=== PATIENT | female | born 1970 | race Caucasian/White ===

== ENCOUNTER 2016-05-30 08:33 | Day surgery (SDC) | payer OTHER ==
[2016-05-27 14:54] VITALS: BMI 33.0
[~2016-05-30 08:33] MED LIST: LACTATED RINGERS 1,000 ML IV SCH; LIDOCAINE 1% 20 ML VIAL (10MG/ML) FOR IV START INTRADERMA PRN
[2016-05-30 09:20] VITALS: RESP 16; TEMP 98.2
[2016-05-30] MEDS ORDERED: PROPOFOL 10 MG/ML 20 ML VIAL IV ONE (10:17)
--- NOTE | 2016-05-30 10:43 | P.PCN ---
Date of Procedure: 05/30/16 Procedure(s) Performed: Brief history: Patient is a pleasant 45-year-old white female, scheduled for an elective upper endoscopy as well as colonoscopy as a part of evaluation of abdominal pain, postprandial abdominal bloating and alternating diarrhea and constipation of several months duration. Procedure performed: Esophagogastroduodenoscopy with biopsy Colonoscopy with biopsy and snare polypectomy Preoperative diagnosis: GERD/abdominal pain Postoperative abdominal bloating and change in bowel habits Anesthesia: MAC Procedure: After informed consent was obtained from the patient was brought into the endoscopy unit and IV conscious sedation was administered by anesthesia under continuous monitoring. Initially upper endoscopy was done. The Olympus GF 160 video endoscope was inserted inserted into the mouth and esophagus intubated without any difficulty and was gradually advanced into the stomach and duodenum and carefully examined. The bulb and second part of the duodenum appeared normal. Biopsies were done from this area to rule out celiac disease. The scope was then withdrawn into the stomach adequately insufflated with air and upon careful examination the antrum had mild gastritis and biopsies were done from this area. The body, cardia and fundus appeared normal. The scope was then withdrawn into the esophagus. The GE junction was located at 40 cm to the incisors. It appeared regular with no erythema erosions or ulcerations. Rest of the esophagus appeared normal. Patient tolerated the procedure well. At this time the patient continued to remain sedation. Initial digital rectal examination was normal. Olympus CF 160 video colonoscope was then inserted into the rectum and gradually advanced to the cecum without any difficulty. Careful examination was performed as the scope was gradually being withdrawn. The prep was excellent. The cecum, ascending colon, transverse colon, descending colon appeared normal. Random biopsies were done from the ascending and descending colon to rule out microscopic/collagenous colitis. In the sigmoid colon there was a 5 mL polyp that was removed by biopsy and then there was a 1 segment of distal sigmoid polyp removed by snare polypectomy. Scattered sigmoidal diverticulosis seen. Rest of the , sigmoid colon and rectum appeared normal. Retroflexion was performed in the rectum and no lesions were noted. Patient tolerated the procedure well. Impression: 1. Upper endoscopy. revealed mild antral gastritis but no evidence of peptic ulcer disease or esophagitis 2. Colonoscopy revealed 5 mm and 1 cm sigmoid colon polyp status post biopsy and snare polypectomy respectively and scattered sigmoidal diverticulosis. Recommendations: Findings of this examination were discussed with the patient as well as her family. She was advised to follow with the biopsy results. She will be seen in office in 2-3 weeks.
[2016-05-30 11:13] VITALS: BP 107/68; PULSE 64
== END 2016-05-30 11:41 | disposition home or self-care (01) ==
LOC: ORWHC2ENDO 08:33
PROVIDERS: ATTEND Internal Medicine Gastroenterology
DX: K29.50 Unspecified chronic gastritis without bleeding (principal); D12.5 Benign neoplasm of sigmoid colon; K63.5 Polyp of colon; K57.30 Diverticulosis of large intestine without perforation or abscess without bleeding; K64.9 Unspecified hemorrhoids; K21.9 Gastro-esophageal reflux disease without esophagitis; F39 Unspecified mood [affective] disorder; I34.1 Nonrheumatic mitral (valve) prolapse; Z79.899 Other long term (current) drug therapy
CPT/HCPCS: 81025; 88305; 88342; 45380; 45385; 43239; J2704

== ENCOUNTER 2017-01-08 06:01 | Observation (INO) | payer OTHER ==
[2017-01-06 10:24] VITALS: BMI 31.1
--- NOTE | 2017-01-07 13:36 | P.HPOB ---
History of Present Illness H&P Date: 01/07/17 Chief Complaint: dysmenorrhea 46 year old presents for TLH with Bilateral salpingectomy with da kishor for dysmenorrhea. Review of Systems All systems: negative Constitutional: Denies chills, Denies fever Eyes: denies blurred vision, denies pain Ears, nose, mouth and throat: Denies headache, Denies sore throat Cardiovascular: Denies chest pain, Denies shortness of breath Respiratory: Denies cough Gastrointestinal: Denies abdominal pain, Denies diarrhea, Denies nausea, Denies vomiting Genitourinary: Denies dysuria, Denies hematuria Musculoskeletal: Denies myalgias Integumentary: Denies pruritus, Denies rash Neurological: Denies numbness, Denies weakness Psychiatric: Denies anxiety, Denies depression Endocrine: Denies fatigue, Denies weight change Past Medical History Past Medical History: GERD/Reflux, Hyperlipidemia, Mitral Valve Prolapse (MVP) Additional Past Medical History / Comment(s): past hx. vertigo. OB history: 2 vaginal deliveries History of Any Multi-Drug Resistant Organisms: None Reported Past Surgical History: Cholecystectomy, Hernia Repair, Uterine Ablation ( pathology at the time did show simple hyperplasia without atypia) Past Anesthesia/Blood Transfusion Reactions: Family History of Problems w/ Anesthesia Additional Past Anesthesia/Blood Transfusion Reaction / Comment(s): pt's mother has hard time coming out of anesthesia Smoking Status: Current every day smoker - Past Family History Mother Family Medical History: No Reported History Medications and Allergies Home Medications Medication Instructions Recorded Confirmed Type LORazepam [Ativan] 0.5 mg PO BID 04/16/15 01/06/17 History diphenhydrAMINE HCL [Benadryl] 25 mg PO HS 04/16/15 01/06/17 History Melatonin 10 mg PO HS 05/27/16 01/06/17 History Omeprazole [PriLOSEC] 40 mg PO DAILY 05/27/16 01/06/17 History Dicyclomine [Bentyl] 10 mg PO BID 05/30/16 01/06/17 History Atorvastatin [Lipitor] 20 mg PO HS 01/06/17 01/06/17 History Citalopram Hydrobromide [CeleXA] 20 mg PO DAILY 01/06/17 01/06/17 History Phentermine HCl [Adipex-P] 37.5 mg PO QAM 01/06/17 01/06/17 History Allergies Allergy/AdvReac Type Severity Reaction Status Date / Time erythromycin base Allergy Rash/Hives Verified 01/06/17 09:15 Exam Osteopathic Statement: *. No significant issues noted on an osteopathic structural exam other than those noted in the History and Physical/Consult. HEart: RRR Lungs: CTAB Abdomen: soft, nontender Extremeties: neg israel's Assessment and Plan (1) Dysmenorrhea Status: Acute Code(s): N94.6 - DYSMENORRHEA, UNSPECIFIED SNOMED Code(s): 307822406 Plan: 1. total laparoscopic hysterectomy with bilateral salpingectomy with da kishor, possible bilateral oopherectomy, possible laparotomy.
[~2017-01-08 06:01] MED LIST changes: -LACTATED RINGERS 1,000 ML IV SCH; -LIDOCAINE 1% 20 ML VIAL (10MG/ML) FOR IV START INTRADERMA PRN; +ceFAZolin 2 GM in SODIUM CHLORIDE 0.9% 100 ML IVPB ONE
[2017-01-08] MEDS ORDERED: LIDOCAINE 1% 20 ML VIAL (10MG/ML) FOR IV START INTRADERMA ONE ×2 (06:25→06:27)
[2017-01-08] MEDS ORDERED: LACTATED RINGERS 1,000 ML IV ONE ×2 (06:26)
[2017-01-08] MEDS ORDERED: DEXAMETHASONE SOD PHOS (MDV) 100 MG/10 ML VIAL IVP ONE (06:27)
[2017-01-08] MEDS ORDERED: ONDANSETRON 4 MG/2 ML VIAL IVP ONE (06:28)
[2017-01-08] MEDS ORDERED: SCOPOLAMINE 1.5MG/72HR PATCH TRANSDERM ONE (06:28)
[2017-01-08] MEDS ORDERED: MORPHINE SULFATE 2 MG/ML SYRINGE IV PRN (06:46)
[2017-01-08] MEDS ORDERED: MIDAZOLAM 2 MG/2 ML VIAL IV PRN (06:46)
[2017-01-08] MEDS ORDERED: ONDANSETRON 4 MG/2 ML VIAL IVP PRN ×2 (06:46→10:03)
[2017-01-08] MEDS ORDERED: LACTATED RINGERS 1,000 ML IV SCH (07:00)
[2017-01-08] MEDS ORDERED: fentaNYL (PF) 50 MCG/ML 2 ML AMP ONE (07:12)
[2017-01-08] MEDS ORDERED: MIDAZOLAM 2 MG/2 ML VIAL ONE (07:12)
[2017-01-08] MEDS ORDERED: SUCCINYLCHOLINE CHLORIDE 100 MG/5 ML SYR IV ONE (07:12)
[2017-01-08] MEDS ORDERED: HYDROmorphone (PF) 1 MG/ML ONE (07:12)
[2017-01-08] MEDS ORDERED: LIDOCAINE 1% INJ 10MG/ML (20 ML MDV) ONE (07:12)
[2017-01-08] MEDS ORDERED: GLYCOPYRROLATE 0.2 MG/ML 2 ML VIAL ONE (07:12)
[2017-01-08] MEDS ORDERED: VECURONIUM 10 MG VIAL IV ONE (07:12)
[2017-01-08] MEDS ORDERED: PROPOFOL 10 MG/ML 20 ML VIAL IV ONE (07:12)
[2017-01-08] MEDS ORDERED: NEOSTIGMINE 1 MG/ML 10 ML VIAL ONE (07:12)
[2017-01-08] MEDS ORDERED: BUPIVACAINE (PF) 0.25% 30 ML VIAL SQ ONE (07:50)
--- NOTE | 2017-01-08 08:39 | P.OP ---
Date of Procedure: 01/08/17 Preoperative Diagnosis: 1. dysmenorrhea Postoperative Diagnosis: 1.dysmenorrhea Procedure(s) Performed: TLH and BS with da ana Anesthesia: JAJA Surgeon: Cely Estrada Certified Physician'S Assistant #1: Kip Jacobs Estimated Blood Loss (ml): 100 IV fluids (ml): 850 Urine output (ml): 100 Pathology: other (uterus, cervix, bilateral fallopian tubes) Condition: stable Disposition: PACU Operative Findings: normal uterus, tubes and ovaries, there was a polypoid structure near the left ureteral orifice on cysto Description of Procedure: Patient taken the operating room where general anesthesia was obtained without difficulty. She is prepped and draped in normal sterile fashion dorsal lithotomy position, legs placed in the Napoleon stirrups. Weighted speculum placed in the vagina and the anterior lip the cervix was grasped with single- tooth tenaculum. The uterus sounded to 8 cm and the cervix diameter was 3.5 cm. The appropriate manipulator tip and ring were placed on the Kajal manipulator. The Kajal manipulator was then placed in the uterus. Couch catheter was also placed. Attention was then turned to the abdomen and gloves were changed. A 5 mm supraumbilical incision was made the scalpel and a 5 mm optical trocar was placed under direct visualization. 10 cm to the right of this and 2 cm down a 5 mm incision was made and 8 mm da Ana port was placed under direct visualization. Same measurements on the opposite side of the patient's abdomen, the 5 mm incision was made and 8 mm da Ana port was placed under direct visualization. In the left upper quadrant a 10 mm incision was made and a 10 mm optical trocar was placed under direct visualization. The 5 mm optical trocar was then replaced with the 8 mm da Ana camera port. The robot was docked on patient's right side. The camera was introduced and then the monopolar curved scissor and [place] bipolar placed under direct visualization. I broke scrub and went to the physician console. The left mesosalpinx was cauterized with the [place] bipolar and cut with monopolar curved scissors a separate the left fallopian tube. The left uterosacral ligament was cauterized with the [place] bipolar and cut with the monopolar curved scissors. The left round ligament was cauterized with the [place] bipolar and cut with monopolar curved scissors. The posterior leaf of the broad ligament was taken down using the monopolar curved scissors. Anterior leaf of the broad ligament was then taken down using the monopolar curved scissors. The uterine artery was cauterized with the [place] bipolar and cut with monopolar curved scissors. The bladder flap was then started using the monopolar curved scissors. Attention was then turned to the right side of the patient's anatomy and The right mesosalpinx was cauterized with the [place] bipolar and cut with monopolar curved scissors a separate the right fallopian tube. The right uterosacral ligament was cauterized with the [place] bipolar and cut with the monopolar curved scissors. The right round ligament was cauterized with the [place] bipolar and cut with monopolar curved scissors. Posterior leaf of the broad ligament was taken down using the monopolar curved scissors and the anterior leaf was taken down using the monopolar curved scissors. The uterine artery was cauterized the [place] bipolar cut with monopolar curved scissors. The bladder flap was then finished on this side. Anterior colpotomy was made using the monopolar curved scissors. The rest of the uterus was from the vaginal cuff by following the ring around with the monopolar curved scissors through the uterosacral ligaments back to the anterior portion. Once the uterus and cervix were amputated they were pulled through the vaginal cuff. Hemostasis was assured. The instruments were changed for the Cardier forcep and the susie suture cut. The vaginal cuff was then closed using O stratafix barbed suture in a running fashion. Hemostasis was again assured and the pelvis was irrigated. All instruments were removed from the abdomen and the robot was undocked. I scrubbed back in to perform a cystoscopy. There were jets from both ureteral orifices. a polypoid structure was also seen on the bladder wall, near the left ureteral orifice. The abdominal incisions were closed with 4-0 Vicryl in a subcuticular fashion. Patient tolerated the procedure well, sponge and instrument counts correct 2 and she was taken to recovery room in stable condition condition
[2017-01-08] MEDS ORDERED: ZOLPIDEM 5 MG TAB PO PRN (10:03)
[2017-01-08] MEDS ORDERED: diphenhydrAMINE 50 MG/ML 1 ML VIAL IVP PRN (10:03)
[2017-01-08] MEDS ORDERED: SIMETHICONE 80 MG CHEWABLE PO PRN (10:03)
[2017-01-08] MEDS ORDERED: METOCLOPRAMIDE 5 MG/ML 2 ML VIAL IVP PRN (10:03)
[2017-01-08] MEDS ORDERED: IBUPROFEN 600 MG TAB PO PRN (10:03)
[2017-01-08] MEDS ORDERED: Acetaminophen-Codeine 300-30mg TAB PO PRN ×2 (10:03)
[2017-01-08] MEDS: KETOROLAC 30 MG/ML 1 ML VIAL IVP PRN ×2 (10:20→16:30)
[2017-01-08] MEDS: CITALOPRAM HYDROBROMIDE 20 MG TAB PO SCH (11:00)
[2017-01-08] MEDS: DICYCLOMINE 10 MG CAP PO SCH ×2 (11:00→20:46)
[2017-01-08] MEDS: DOXYCYCLINE 50 MG CAP PO SCH (11:00)
[2017-01-08] MEDS: LORazepam 0.5 MG TAB PO SCH ×2 (11:01→20:47)
[2017-01-08] MEDS: PANTOPRAZOLE 40 MG TABLET PO SCH (11:01)
[2017-01-08] MEDS ORDERED: ATORVASTATIN 20 MG TAB PO SCH (21:00)
[2017-01-08] MEDS ORDERED: diphenhydrAMINE 25 MG CAP PO SCH (21:00)
[2017-01-09] MEDS: KETOROLAC 30 MG/ML 1 ML VIAL IVP PRN ×2 (02:11→08:34)
[2017-01-09 07:03] LABS: Basophils % (A) 0 %; CH 29.7; CHCM 32.1; Eosinophils # (A) 0.1 k/uL (0-0.7); Eosinophils % (A) 1 %; HCT 35.3 % (34.0-46.0); HDW 2.36; HGB 11.4 gm/dL (11.4-16.0); Luc # (Auto) 0.14; Luc % (Auto) 1; Lymphocytes # (A) 1.8 k/uL (1.0-4.8); Lymphocytes % (A) 14 %; MCH 29.9 pg (25.0-35.0); MCHC 32.2 g/dL (31.0-37.0); MCV 92.9 fL (80.0-100.0); Monocytes # (A) 0.6 k/uL (0-1.0); Monocytes % (A) 5 %; Neutrophils # (A) 10.3 k/uL (1.3-7.7); Neutrophils % (A) 80 %; RDW 13.2 % (11.5-15.5)
--- NOTE | 2017-01-09 08:42 | P.DS ---
Providers Date of admission: 01/08/17 10:29 Expected date of discharge: 01/09/17 Attending physician: Cely Estrada Primary care physician: Anatoly Ontiveros - Discharge Diagnosis(es) (1) Dysmenorrhea Current Visit: Yes Status: Resolved (2) History of robot-assisted laparoscopic hysterectomy Current Visit: Yes Status: Acute (3) Bladder tumor found incidentally on diagnostic cystoscopy Current Visit: Yes Status: Acute Hospital Course: Ghada presented for total laparoscopic hysterectomy with bilateral salpingectomy for dysmenorrhea after history of a NovaSure ablation. She underwent this procedure without complication. During the procedure was performed with a diagnostic cystoscopy I did note a bladder tumor and reviewed the pictures with her urologist. Dr. Rodriguez side there is was likely a low- grade bladder cancer and would like to see her outpatient in his office in 1 week. I did convey this to the patient and she expressed complete understanding. Her postoperative course was uncomplicated. Her pain is well- controlled with Toradol. She is tolerating regular diet, ambulating, voiding, and passing flatus without difficulty. She denies nausea, vomiting, chest pain , shortness of breath or calf pain. Her incisions are clean, dry, intact. She' ll be discharged home postoperative day #1 in stable condition to follow-up with me in 3 weeks and follow-up with Dr. Rodriguez in 1 week. Plan - Discharge Summary Discharge Rx Participant: Yes New Discharge Prescriptions: New Acetaminophen-Codeine 300-30mg [Tylenol w/codeine #3] 2 each PO Q6HR PRN #20 tab PRN Reason: Severe Pain Ibuprofen [Motrin] 600 mg PO Q6HR PRN #30 tab PRN Reason: Mild Discomfort No Action diphenhydrAMINE HCL [Benadryl] 25 mg PO HS LORazepam [Ativan] 0.5 mg PO BID Omeprazole [PriLOSEC] 40 mg PO DAILY Melatonin 10 mg PO HS Dicyclomine [Bentyl] 10 mg PO BID Phentermine HCl [Adipex-P] 37.5 mg PO QAM Citalopram Hydrobromide [CeleXA] 20 mg PO DAILY Atorvastatin [Lipitor] 20 mg PO HS Doxycycline [Vibramycin] 100 mg PO DAILY Discharge Medication List LORazepam [Ativan] 0.5 mg PO BID 04/16/15 [History] diphenhydrAMINE HCL [Benadryl] 25 mg PO HS 04/16/15 [History] Melatonin 10 mg PO HS 05/27/16 [History] Omeprazole [PriLOSEC] 40 mg PO DAILY 05/27/16 [History] Dicyclomine [Bentyl] 10 mg PO BID 05/30/16 [History] Atorvastatin [Lipitor] 20 mg PO HS 01/06/17 [History] Citalopram Hydrobromide [CeleXA] 20 mg PO DAILY 01/06/17 [History] Phentermine HCl [Adipex-P] 37.5 mg PO QAM 01/06/17 [History] Doxycycline [Vibramycin] 100 mg PO DAILY 01/08/17 [History] Acetaminophen-Codeine 300-30mg [Tylenol w/codeine #3] 2 each PO Q6HR PRN #20 tab 01/09/17 [Rx] Ibuprofen [Motrin] 600 mg PO Q6HR PRN #30 tab 01/09/17 [Rx] Follow up Appointment(s)/Referral(s): Cely Estrada DO [Doctor of Osteopathic Medicine] - 3 Weeks Omar Rodriguez MD [STAFF PHYSICIAN] - 1 Week Patient Instructions/Handouts: Scopolamine (Absorbed through the skin), Laparoscopic Hysterectomy (GEN)
[2017-01-09] MEDS: CITALOPRAM HYDROBROMIDE 20 MG TAB PO SCH (08:44)
[2017-01-09] MEDS: DOXYCYCLINE 50 MG CAP PO SCH (08:44)
[2017-01-09] MEDS: PANTOPRAZOLE 40 MG TABLET PO SCH (08:44)
[2017-01-09] MEDS: DICYCLOMINE 10 MG CAP PO SCH (08:44)
[2017-01-09] MEDS: LORazepam 0.5 MG TAB PO SCH (08:47)
[2017-01-09 09:06] VITALS: BP 111/66; PULSE 73; RESP 20; TEMP 97.3
== END 2017-01-09 10:35 | disposition home or self-care (01) ==
LOC: OR 06:01 → 6PED 08:36 → OR 10:29 → 6PED 10:29 → INTOOBSV 10:29
PROVIDERS: ADMIT Obstetrics & Gynecology; ATTEND Obstetrics & Gynecology
DX: D25.9 Leiomyoma of uterus, unspecified (principal); N80.0 Endometriosis of uterus; N83.8 Other noninflammatory disorders of ovary, fallopian tube and broad ligament; D49.4 Neoplasm of unspecified behavior of bladder; N94.6 Dysmenorrhea, unspecified; N99.89 Other postprocedural complications and disorders of genitourinary system; K21.9 Gastro-esophageal reflux disease without esophagitis; I34.1 Nonrheumatic mitral (valve) prolapse; E78.5 Hyperlipidemia, unspecified; F17.200 Nicotine dependence, unspecified, uncomplicated; Z79.899 Other long term (current) drug therapy; Z88.1 Allergy status to other antibiotic agents
CPT/HCPCS: 58571; S2900; 81025; 85025; 86850; 86900; 86901; 88307

== ENCOUNTER → 2019-03-31 | Outpatient (CLI) | payer OTHER | END | disposition home or self-care (01) | LOC: LABWHC1 15:02 | PROVIDERS: ATTEND Orthopaedic Surgery | DX: Z01.812 Encounter for preprocedural laboratory examination (principal); M16.11 Unilateral primary osteoarthritis, right hip | CPT/HCPCS: 87070 ==

== ENCOUNTER 2019-04-04 07:30 | Inpatient (IN) | payer OTHER ==
[2019-03-29 15:31] VITALS: BMI 31.9
--- NOTE | 2019-04-03 15:40 | HP ---
HISTORY AND PHYSICAL REASON FOR ADMISSION: Surgery is 04/04/2019. Miguelito Nieto is a 48-year-old patient seen with symptomatic right hip osteoarthritis. We discussed options for treatment. She elected to proceed with right total hip arthroplasty. Consent was obtained. Medical clearance was provided by Dr. Patterson. PAST MEDICAL HISTORY: Anxiety. PAST SURGICAL HISTORY: Carpal tunnel release, cholecystectomy, hysterectomy, herniorrhaphy. MEDICATIONS: Celexa. ALLERGIES: None known. SOCIAL HISTORY: She denies current tobacco use. PHYSICAL EXAMINATION: Evaluation of the right hip: There is very limited range of motion. Severe pain, positive hip impingement sign. Straight leg raise negative. Distal neurovascular exam is intact. RADIOGRAPHS: Radiographs of the right hip reveal severe osteoarthritic changes. IMPRESSION: 1. Right hip osteoarthritis. 2. Hypertension. PLAN: Direct anterior right total hip arthroplasty. Surgery scheduled for 04/04/2019. MMODL / IJN: [id number] /
[~2019-04-04 07:30] MED LIST changes: +ACETAMINOPHEN TAB 500 MG TAB PO ONE; +DEXAMETHASONE SOD PHOSPHATE 10 MG/ML 1 ML VIAL IV ONE; +MELOXICAM 7.5 MG TAB PO ONE; +MIDAZOLAM 2 MG/2 ML VIAL IV PRN; +ONDANSETRON 4 MG/2 ML VIAL IVP ONE; +SCOPOLAMINE 1.5MG/72HR PATCH TRANSDERM ONE; +TRANEXAMIC ACID 1,000 MG in SODIUM CHLORIDE 0.9% 100 ML IVPB ONE; +VANCOMYCIN 1,250 MG in SODIUM CHLORIDE 0.9% 250 ML IVPB ONE; -ceFAZolin 2 GM in SODIUM CHLORIDE 0.9% 100 ML IVPB ONE
[2019-04-04] MEDS ORDERED: LIDOCAINE 1% 20 ML VIAL (10MG/ML) FOR IV START INTRADERMA ONE (08:45)
[2019-04-04] MEDS: LACTATED RINGERS 1,000 ML IV SCH ×4 (08:45→23:27)
[2019-04-04] MEDS ORDERED: TRANEXAMIC ACID 1,000 MG/10 ML VIAL ONE (10:20)
[2019-04-04] MEDS ORDERED: PROPOFOL 10 MG/ML 20 ML VIAL IV ONE (10:20)
[2019-04-04] MEDS ORDERED: MIDAZOLAM 2 MG/2 ML VIAL ONE (10:20)
[2019-04-04] MEDS ORDERED: SODIUM CHLORIDE 0.9% 100 ML BAG ONE (10:20)
[2019-04-04] MEDS ORDERED: fentaNYL (PF) 50 MCG/ML 2 ML AMP ONE (10:20)
[2019-04-04] MEDS ORDERED: PHENYLEPHRINE-0.9% NACL SYG 1 MG/10 ML SYRINGE ONE (10:20)
[2019-04-04] MEDS: ROPIVACAINE 246.25 MG, EPINEPHrine 0.5 MG, KETOROLAC 30 MG, cloNIDine HCL/PF 80 MCG, WA... MISCELLANE ONE ×10 (11:02→11:38)
[2019-04-04] MEDS ORDERED: LACTATED RINGERS 1,000 ML IV ONE ×2 (11:21→14:13)
[2019-04-04] MEDS ORDERED: HYDROcodone/APAP 7.5-325MG 1 EACH TAB PO PRN (12:07)
[2019-04-04] MEDS ORDERED: HYDROmorphone 0.5 MG/0.5 ML SYRINGE IVP PRN ×2 (12:07)
[2019-04-04] MEDS ORDERED: ONDANSETRON 4 MG/2 ML VIAL IVP PRN (12:07)
[2019-04-04] MEDS ORDERED: HYDROmorphone 1 MG/ML 1 ML SYRINGE IVP PRN (12:07)
[2019-04-04] MEDS ORDERED: NALOXONE 0.4 MG/ML 1 ML VIAL IV PRN (12:07)
--- NOTE | 2019-04-04 12:07 | P.OP ---
Date of Procedure: 04/04/19 Preoperative Diagnosis: Right hip osteoarthritis Postoperative Diagnosis: Right hip osteoarthritis Procedure(s) Performed: Direct anterior right total hip arthroplasty Implants: 1. [place] Corail size 8 standard collar press-fit femoral stem 2. [place] pinnacle 52 mm multi hole press-fit acetabular shell 3. [place] pinnacle neutral polyethylene acetabular liner 36 mm ID 52 mm OD 4. Biolox delta ceramic femoral head +1.5 36 mm 5. [place] cancellous bone screw 6.5 mm x 15 mm Anesthesia: local, spinal Surgeon: Jian Wilkins Instrument Sterilizer #1: Isaiah Sanchez Estimated Blood Loss (ml): 200 Pathology: other (Femoral head) Condition: stable Disposition: PACU Indications for Procedure: 48-year-old patient seen was symptomatic right hip osteoarthritis. After treatment options were discussed with her, she elected to to proceed with total hip arthroplasty. Operative Findings: See description of procedure Description of Procedure: The patient was taken to the operative suite. Patient underwent a spinal anesthetic by the department of anesthesia. Patient was then transferred to the [place] table. Patient was given preoperative IV antibiotics and TXA. Both lower extremities were placed in standard leg spars. The hip was then prepped and draped in the normal sterile orthopedic fashion. A standard anterior incision was made beginning 3 cm lateral and 1 cm distal to the ASIS extending 10 cm. Dissection was then carried down through the subcutaneous soft tissues down to the fascia overlying the tensor fascia mahesh. An incision was now made through the fascia. Careful dissection was taken down exposing the tensor fascia mahesh muscle. A Cobra retractor was now placed along the medial femoral neck and a second one along the lateral femoral neck. The venous circumflex vessels were now identified, cauterized and clipped. We identified the anterior hip capsule. An incision was made through the hip capsule along the lateral border. I performed a partial anterior capsulectomy. Retractors were now placed around the femoral neck itself. A femoral neck cut was now made with a sagittal saw. It was completed with an osteotome at the lateral neck area. The femoral head was now removed without difficulty. The extremity was now rotated to 45 of external rotation. It was locked in position. Residual labrum was now debrided out. Serial reaming was performed of the acetabulum while Emiliano RODRIGUEZ assisted holding an anterior retractor for exposure. Once we reached the appropriate size and a trial was position and fit nicely. The appropriate size was now chosen opened and made available. It was introduced into the acetabulum without difficulty. The C-arm/fluoroscopy was now brought into the operative field. We made sure we had a true AP pelvic view. We now under direct C- arm/fluoroscopy introduced into the acetabular component with appropriate version and inclination. I held the cup in appropriate position well Emiliano RODRIGUEZ used a mallet to seat the acetabular component. I noted the component now to be well seated and stable. Acetabular cup introduce her was removed. The C-arm was pulled back. An appropriate liner was introduced and clicked into position. It was felt to be stable. I did insert one screw to augment the stability. At this point retractors were removed. The extremity was now placed into 120 external rotation with no traction. The leg was now dropped to the ground and adducted. Appropriate retractors were now positioned along the proximal femur. We also placed our femoral look into position. Additional capsular releasing was performed to gain access to the proximal femur. We now used a box osteotome. A canal finder was now utilized. Serial broaching was now performed with the assistance of Emiliano RODRIGUEZ tapping the broaches down with a mallet while held the broach in appropriate rotation and position. This was done until we reached the appropriate size with good overall rotational stability. Appropriate calcar planing was performed. A trial head/neck was placed into position. The hip was now reduced. The C-arm/fluoroscopy was brought back into the operative field. An AP pelvis was obtained to ascertain leg lengths which appeared reasonably aligned. The trial components appeared well position. The C-arm/fluoroscopy was pulled back. Retractors were repositioned and the hip was dislocated. The leg was again taken down to the ground and adducted. Appropriate retractors were repositioned as well as the femoral hook. All trial components were removed. The femoral implant was opened along with the femoral head. The femoral implant was introduced on the appropriate handle into our pre-broached area. I held the component position well Emiliano RODRIGUEZ used a mallet to seat the femoral component. The femoral component was now noted to be well seated and stable.. The femoral head was introduced with good positioning and fixation noted. Retractors were now r emoved. The hip was now reduced. There appeared be good positioning of the hip confirmed on intraoperative fluoroscopy. Spot films were obtained to document this. A second gram of TXA was given. The deep and superficial soft tissues were infiltrated with local analgesic. Bipolar cautery had been utilized intermittently through the procedure for hemostasis. The wound was irrigated copiously with pulse lavage mechanical irrigation. The fascia was repaired with Vicryl suture. The subcutaneous soft tissues were repaired in layers with Vicryl suture. The skin was approximated with pernio/Dermabond. Sterile dressings were applied. Patient was then awakened, transferred to a bed and taken to recovery in stable condition. Emiliano RODRIGUEZ assisted with the complex procedure.
--- NOTE | 2019-04-04 12:19 | XR ---
EXAMINATION TYPE: XR Hip Limited RT, FL guidance operating room DATE OF EXAM: 04/04/2019 CLINICAL HISTORY: Right hip replacement from an anterior approach. Fluoroscopic documentation. TECHNIQUE: Fluoroscopy. COMPARISON: None. FINDINGS: Fluoroscopic guidance was provided during procedure performed by Dr. Wilkins. A total o f 25 seconds of fluoroscopic time was utilized during the procedure and 1 spot images was acquired. IMPRESSION: As Above.
[2019-04-04] MEDS ORDERED: diphenhydrAMINE 50 MG/ML 1 ML VIAL IVP ONE (12:30)
[2019-04-04] MEDS: HYDROmorphone 0.5 MG/0.5 ML SYRINGE IVP PRN ×2 (14:13→15:07)
[2019-04-04] MEDS: HYDROcodone/APAP 7.5-325MG 1 EACH TAB PO PRN ×2 (16:35→23:27)
[2019-04-04] MEDS ORDERED: diphenhydrAMINE 50 MG/ML 1 ML VIAL IVP PRN (19:01)
[2019-04-04] MEDS ORDERED: MELATONIN 5 MG TABLET PO SCH (21:00)
[2019-04-04] MEDS ORDERED: SENNOSIDES-DOCUSATE SODIUM 1 EACH TAB PO SCH (21:00)
[2019-04-04] MEDS ORDERED: LORazepam 0.5 MG TAB PO SCH (21:00)
[2019-04-04] MEDS ORDERED: ATORVASTATIN 20 MG TAB PO SCH (21:00)
[2019-04-04] MEDS: diphenhydrAMINE 25 MG CAP PO SCH (21:10)
[2019-04-05] MEDS: HYDROcodone/APAP 7.5-325MG 1 EACH TAB PO PRN ×2 (05:34→13:03)
--- NOTE | 2019-04-05 06:33 | CONS ---
CONSULTATION REASON FOR CONSULTATION: Advice regarding history of GERD and multiple other medical issues requested by Dr. Wilkins. HISTORY OF PRESENT ILLNESS: This 48-year-old woman with a past medical history of GERD, history of mitral valve prolapse, history of DJD, history of irritable bowel syndrome, history of bladder cancer being followed by Dr. Patterson in the outpatient setting underwent direct anterior right total hip joint arthroplasty for right hip arthroplasty by Dr. Wilkins. There is no history of chest pain. No history of palpitations. No history of headache, loss of consciousness, seizure, nausea, vomiting, diarrhea, fever, rigors or chills. The patient is complaining of some itching after the medications at this time. PAST MEDICAL HISTORY: GERD, mitral valve prolapse, bladder surgery, cholecystectomy and anxiety. MEDICATIONS: Home medications are: 1. Benadryl 25 mg p.o. b.i.d. 2. Multivitamins one p.o. daily. 3. Melatonin 20 mg at bedtime. 4. Ativan 0.5 mg p.o. daily. 5. Kratom one tablet p.o. daily p.r.n. 6. Motrin 600 mg q.6 p.r.n. 7. Collagen one tablet p.o. daily. 8. Celexa 20 mg p.o. daily. 9. Vitamin D3 10,000 p.o. Thursday. 10.Lipitor 20 mg at bedtime. ALLERGIES: ERYTHROMYCIN BASE. FAMILY HISTORY: No history of heart disease or strokes in the family. SOCIAL HISTORY: No history of current smoking, previous history of smoking. No history of alcohol intake. REVIEW OF SYSTEMS: ENT: No diminished hearing or diminished vision. CARDIOVASCULAR SYSTEM: No angina or palpitations. RESPIRATORY SYSTEM: No cough or hemoptysis. GI: No nausea. : No dysuria. NERVOUS SYSTEM: No numbness or weakness. ALLERGY/IMMUNOLOGY: No asthma or hay fever, otherwise mentioned earlier. HEMATOLOGY: No history of anemia. ENDOCRINE: No history of diabetes or hypothyroidism. CONSTITUTIONAL: As mentioned earlier. DERMATOLOGY: As mentioned earlier. RHEUMATOLOGY: Negative. PSYCHIATRY: As mentioned earlier. MUSCULOSKELETAL: As mentioned earlier. PHYSICAL EXAMINATION: The patient is alert and oriented x3. Pulse is 63 blood pressure 110/64, respiration 18, temperature 98 degrees, pulse ox 99% on room air. HEENT: Conjunctivae normal. Oral mucosa moist. NECK: No jugular venous distention. No carotid bruit. No lymph node enlargement. CARDIOVASCULAR: S1, S2 muffled. RESPIRATORY: Breath sounds diminished at the bases. No rhonchi, no crackles. ABDOMEN: Soft, nontender. LEGS: Status post surgery. NERVOUS SYSTEM: Higher functions as mentioned. Moves all 4 limbs. No focal deficits. LYMPHATICS: No lymphadenopathy of the neck, axillae or groin. SKIN: No ulcer, rash or bleeding. JOINTS: As mentioned earlier. LABS: CBC previous CBC hemoglobin 13. ASSESSMENT: 1. Status post right total hip joint arthroplasty. 2. History of gastroesophageal reflux disease. 3. History of mitral valve prolapse. 4. History of degenerative joint disease. 5. History of irritable bowel syndrome. 6. History of vertigo. 7. History of bladder cancer. 8. History of cholecystectomy. 9. History of anxiety, panic disorder. 10.Remote history of nicotine dependence. RECOMMENDATIONS AND DISCUSSION: This 48-year-old woman presented with multiple complex medical issues. At this time I recommend to continue current medications, symptomatic treatment, resume the home medications, DVT prophylaxis, incentive spirometry. Will follow the patient closely with you. The patient may be asked to follow up with Dr. Patterson closely after discharge. I would recommend to stop the Kratom and ibuprofen now. Thank you Dr. Wilkins for letting us participate in the care of this patient. CHRISTOPHERL / PANCHITO: [id number] /
[2019-04-05 07:51] VITALS: BP 97/62; PULSE 79; RESP 16; TEMP 98.3
[2019-04-05 07:54] LABS: Basophils % (A) 0 %; Eosinophils # (A) 0.1 k/uL (0-0.7); Eosinophils % (A) 1 %; HCT 34.3 % (34.0-46.0); HGB 11.1 gm/dL (11.4-16.0); Lymphocytes # (A) 2.3 k/uL (1.0-4.8); Lymphocytes % (A) 19 %; MCHC 32.3 g/dL (31.0-37.0); MCV 89.6 fL (80.0-100.0); Mean Platelet Volume 7.8; Monocytes # (A) 0.6 k/uL (0-1.0); Monocytes % (A) 5 %; Neutrophils % (A) 74 %; Platelet Count 189 k/uL (150-450); RBC 3.83 m/uL (3.80-5.40); RDW 13.8 % (11.5-15.5); WBC 12.1 k/uL (3.8-10.6)
[2019-04-05] MEDS ORDERED: LORazepam 0.5 MG TAB PO SCH (09:00)
[2019-04-05] MEDS ORDERED: MULTIVITAMINS, THERA 1 EACH TAB PO SCH (09:00)
[2019-04-05] MEDS ORDERED: CITALOPRAM HYDROBROMIDE 20 MG TAB PO SCH (09:00)
[2019-04-05] MEDS ORDERED: MELOXICAM 7.5 MG TAB PO SCH (09:00)
[2019-04-05] MEDS ORDERED: ENOXAPARIN 40 MG/0.4 ML SYRINGE SQ SCH (09:00)
[2019-04-05] MEDS ORDERED: FAMOTIDINE 20 MG TAB PO SCH (09:00)
[2019-04-05] MEDS: diphenhydrAMINE 25 MG CAP PO SCH (09:39)
--- NOTE | 2019-04-05 11:14 | P.PN ---
Subjective Progress Note Date: 04/05/19 Principal diagnosis: status post right anterior left total hip arthroplasty Patient dilated bedside, she is resting comfortably. She's ambulate well with therapy. She notes minimal discomfort in the thigh. She denies any chest pain or shortness of breath. Objective - Vital Signs Vital signs: Vital Signs Temp 98.3 F 04/05/19 07:00 Pulse 79 04/05/19 08:00 Resp 16 04/05/19 08:00 BP 97/62 04/05/19 07:00 Pulse Ox 98 04/05/19 07:00 Intake & Output 04/04/19 04/05/19 04/05/19 18:59 06:59 18:59 Intake Total 3050 Output Total 200 Balance 2850 Weight 77.9 kg Intake: IV 3050 Output: Estimated Blood Loss 200 Other: Voiding Method Toilet Toilet # Voids 1 - Exam Right lower extremity: Incision is clean, dry, and intact. The exofin fusion tape is in good condition. There is minimal soft tissue swelling and ecchymosis surrounding the medial and lateral aspects of the incision. Calf is soft, no tenderness with palpation. Plantar flexion, dorsiflexion, EHL, FHL are intact. Sensory exam to light touch throughout the extremity is intact, dorsal pedis pulses 2+. - Labs CBC & Chem 7: 04/05/19 07:13 Labs: Abnormal Lab Results - Last 24 Hours (Table) 04/05/19 Range/Units 07:13 WBC 12.1 H (3.8-10.6) k/uL Hgb 11.1 L (11.4-16.0) gm/dL Neutrophils # 9.0 H (1.3-7.7) k/uL Assessment and Plan Plan: Assessment: Postoperative day #1 status post direct anterior total hip arthroplasty Plan: Pain control, discharged on oral [place] 7.5 mg/325 mg GI and DVT prophylaxis, aspirin 81 mg twice a day Wound care instructions were discussed Home physical therapy and nursing after discharge Medical recommendations We'll discharge home today Time with Patient: Less than 30
--- NOTE | 2019-04-05 11:16 | P.DS ---
Providers Date of admission: 04/04/19 07:53 Expected date of discharge: 04/05/19 Attending physician: Jian Wilkins Consults: 04/04/19 12:07 Consult Physician Routine Consulting Provider: Dominik Patterson Reason/Comments: Medical management Do you want consulting provider notified?: Yes Primary care physician: Dominik Patterson [facility] Course: Date of admission: 04/04/2019 Date of discharge: 04/05/2019 Admission diagnosis: Status post direct anterior right total hip arthroplasty Discharge diagnosis: Same Attending physician: Dr. Wilkins Surgical procedures: Direct anterior right total hip arthroplasty Brief history: Patient is a 48-year-old female with a history of progressive primary right hip osteoarthritis. At this point patient has failed conservative treatment measures and has opted to proceed with a elective direct anterior right total hip arthroplasty. Hospital course: Details of patient's surgery can be found in operative report. Patient tolerated the procedure well and was subsequently transported to orthopedic floor. Patient's orthopeidc and medical care was provided daily. Patient had daily laboratory tests performed for evaluation of overall blood counts. Patient had daily physical therapy to include strengthening range of motion as well as education with walker ambulation. Patient was treated with Lovenox for their postoperative DVT prophylaxis during their inpatient stay. Patient was noted to have a relatively uneventful postoperative course. Patient reported satisfactory pain control with oral pain medications by postoperative day 0. Patient showed satisfactory progress with physical therapy. Patient moved steadily through the program and had no difficulty meeting the goals by postoperative day 1. Given patient's otherwise satisfactory course and having met physical therapy goals, plan is to discharge patient home on postoperative day 1. Discharge condition/disposition: Patient will be discharged home in stable condition. Discharge medications: Instructions are given on resumption of patient's normal daily medications per primary care recommendation, in addition patient will be prescribed [place] 7.5 mg/325 mg, tramadol 50 mg, Colace 100 mg. Discharge instructions: 1. Wound care and infection precautions, keep incision dry and covered while showering, no lotions, creams, moisturizers. No soaking, tubs, pools, hottubs. Do not scrub over the incision. 2. Weight-bear as tolerated with walker / cane until follow-up. 3. Ice and elevate when necessary. Do not exceed 20 minutes per hour with ice pack. 4. Utilize compression sleeve until seen at first follow up appointment. 5. Visiting nursing care. 6. Home physical therapy. 7. Pain meds and anticoagulants per prescription. 8. Pain medication has potential to cause constipation. Increase oral fluid and fiber intake. Contact primary care provider if you have not had a bowel movement within 48 hours after discharge 9. No anti-inflammatory medication until discussed at first post operative visit, this including Motrin, Aleve, Mobic, Diclofenac. 10. Follow up in office at 2 weeks postop with Emiliano Sanchez PA-C 11. Follow up with your primary care doctor 7-10 days after discharge. 12. Contact [facility] with any questions, . Procedures: Direct anterior right total hip arthroplasty Patient Condition at Discharge: Good Plan - Discharge Summary Discharge Rx Participant: Yes New Discharge Prescriptions: New Aspirin [Adult Low Dose Aspirin EC] 81 mg PO BID #60 tablet. HYDROcodone/APAP 7.5-325MG [[place] 7.5] 1 - 2 each PO Q6HR PRN #56 tab PRN Reason: Pain traMADol HCl [Ultram] 50 mg PO Q6H PRN #28 tab PRN Reason: Pain No Action diphenhydrAMINE HCL [Benadryl] 25 mg PO BID LORazepam [Ativan] 0.5 mg PO DAILY Melatonin 20 mg PO HS Citalopram Hydrobromide [CeleXA] 20 mg PO DAILY Atorvastatin [Lipitor] 20 mg PO HS Ibuprofen [Motrin] 600 mg PO Q6HR PRN #30 tab PRN Reason: Mild Discomfort Multivitamins, Thera [Multivitamin (formulary)] 1 tab PO DAILY Cholecalciferol [Vitamin D3 (25 Mcg = 1000 Iu)] 10,000 unit PO SA Kratom 1 tab PO DAILY PRN PRN Reason: Pain Collagen & Biotin 1 tab PO DAILY Discharge Medication List LORazepam [Ativan] 0.5 mg PO DAILY 04/16/15 [History] diphenhydrAMINE HCL [Benadryl] 25 mg PO BID 04/16/15 [History] Melatonin 20 mg PO HS 05/27/16 [History] Atorvastatin [Lipitor] 20 mg PO HS 01/06/17 [History] Citalopram Hydrobromide [CeleXA] 20 mg PO DAILY 01/06/17 [History] Ibuprofen [Motrin] 600 mg PO Q6HR PRN #30 tab 01/09/17 [Rx] Cholecalciferol [Vitamin D3 (25 Mcg = 1000 Iu)] 10,000 unit PO SA 03/29/19 [History] Collagen & Biotin 1 tab PO DAILY 03/29/19 [History] Kratom 1 tab PO DAILY PRN 03/29/19 [History] Multivitamins, Thera [Multivitamin (formulary)] 1 tab PO DAILY 03/29/19 [History] Aspirin [Adult Low Dose Aspirin EC] 81 mg PO BID #60 tablet. 04/05/19 [Rx] HYDROcodone/APAP 7.5-325MG [[place] 7.5] 1 - 2 each PO Q6HR PRN #56 tab 04/05/19 [Rx] traMADol HCl [Ultram] 50 mg PO Q6H PRN #28 tab 04/05/19 [Rx] Follow up Appointment(s)/Referral(s): [facility], [NON-STAFF] - Dominik Patterson MD [Primary Care Provider] - 04/12/19 11:00 am Isaiah Sanchez PAC [PHYSICIAN PHOTOGRAPH RETOUCHER] - 04/20/19 1:50 pm Activity/Diet/Wound Care/Special Instructions: Orthopedic Discharge Instructions: 1. Wound care and infection precautions, keep incision dry and covered while showering, no lotions, creams, moisturizers. No soaking, pools, hot tubs. Do not scrub over incision. 2. Weight-bear as tolerated with walker / cane until follow-up. 3. Ice and elevate when necessary. Do not exceed 20 minutes per hour with ice pack. 4. Utilize compression sleeve until seen at first follow up appointment. 5. Pain meds and anticoagulants per prescription. 6. Pain medication has potential to cause constipation. Increase oral fluid and fiber intake. Contact primary care provider if you have not had a bowel movement within 48 hours after discharge. 7. No anti-inflammatory medication until discussed at first post operative visit, this including Motrin, Aleve, Mobic, Diclofenac. 8. Follow up in office at 2 weeks postop with Emiliano Sanchez PA-C 9. Follow up with your primary care doctor 7-10 days after discharge. 10. Contact [facility] with any questions, . Discharge Disposition: HOME WITH HOME HEALTH SERVICES
--- NOTE | 2019-04-05 20:13 | PN ---
PROGRESS NOTE DATE OF SERVICE: 04/05/2019 This 48-year-old woman who was admitted after right hip joint arthroplasty is improving significantly. Patient is followed by Dr. Patterson in the outpatient setting. No chest pain. No palpitations. No fever. PHYSICAL EXAMINATION: Alert and oriented x3. Pulse 79, blood pressure 97/60, respirations 16, temperature 98.3, pulse ox 98% on room air. HEENT: Conjunctivae normal. NECK: No jugular venous distention. CARDIOVASCULAR SYSTEM: S1, S2 muffled. RESPIRATORY SYSTEM: Breath sounds diminished at the bases. No rhonchi. No crackles. ABDOMEN: Soft, non-tender. LEGS: Status post surgery. NERVOUS SYSTEM: No focal deficit. LABS: WBC 12.2, hemoglobin 11.1. ASSESSMENT: 1. Status post right total hip joint arthroplasty. 2. History of gastroesophageal reflux disease. 3. Increased white count, possibly reactive. 4. History of mitral valve prolapse. 5. History of degenerative joint disease. 6. History of irritable bowel syndrome. 7. History of vertigo. 8. History of bladder cancer. 9. History of cholecystectomy. 10.Anxiety, panic disorder. 11.Remote history of nicotine dependence. RECOMMENDATIONS AND DISCUSSION: I recommend to continue current medications, continue with the monitoring, symptomatic treatment. Closely follow with Orthopedic Surgery and Dr. Patterson as an outpatient. Resume the home medications. Further recommendations per Orthopedic Surgery. Further recommendations to follow. Continue incentive spirometry. MMJENELLEL / IJN: [id number] /
[2019-04-09] MEDS ORDERED: CHOLECALCIFEROL 1,000 UNIT TAB PO SCH (09:00)
== END 2019-04-05 13:44 | disposition home health service (06) | DRG 470 ==
LOC: 2ORMAIN 07:53 → 4SSUR 15:58
PROVIDERS: ADMIT Orthopaedic Surgery; ATTEND Orthopaedic Surgery
PROC: 0SR904A Replacement of Right Hip Joint with Ceramic on Polyethylene Synthetic Substitute, Uncemented, Open Approach (ICD-10-PCS; principal; 2019-04-04 10:00)
DX: M16.11 Unilateral primary osteoarthritis, right hip (principal); I34.1 Nonrheumatic mitral (valve) prolapse; I10 Essential (primary) hypertension; F41.0 Panic disorder [episodic paroxysmal anxiety]; K21.9 Gastro-esophageal reflux disease without esophagitis; R56.9 Unspecified convulsions; Z96.642 Presence of left artificial hip joint; Z85.51 Personal history of malignant neoplasm of bladder; Z87.891 Personal history of nicotine dependence; Z90.49 Acquired absence of other specified parts of digestive tract; Z90.710 Acquired absence of both cervix and uterus; Z88.1 Allergy status to other antibiotic agents
CPT/HCPCS: 36415; 73501; 85025; 86850; 86900; 86901; 88305; 88311